=== PATIENT | male | born 1980 | race Caucasian/White ===

== ENCOUNTER 2018-05-21 11:11 | Emergency (ER) | payer OTHER ==
[~2018-05-21] VITALS: Ht 177.8 cm; Wt 72.6 kg
[2018-05-21] MEDS ORDERED: LIDOCAINE HCL/PF 1% 30 ML VIAL TP ONE (11:30)
[2018-05-21] MEDS ORDERED: HYDROCODONE/APAP 10/325MG 1 EA TABLET PO ONE (11:30)
[2018-05-21] MEDS ORDERED: TDAP [DIPH/PERTUSSIS/TET] 0.5 ML VIAL IM ONE ×2 (11:30→11:47)
[2018-05-21] MEDS ORDERED: LIDOCAINE 1% INJ 50 ML MDV IJ ONE (11:46)
[2018-05-21] MEDS ORDERED: HYDROCODONE/APAP 10/325MG 1 EA TABLET ONE (11:47)
[2018-05-21] MEDS ORDERED: IBUPROFEN 600 MG TABLET PO ONE ×2 (11:54→12:00)
[2018-05-21 12:27] VITALS: BP 125/71
== END 2018-05-21 12:27 | disposition home or self-care (01) ==
LOC: ER 11:14
DX: S61.411A Laceration without foreign body of right hand, initial encounter (principal); F10.10 Alcohol abuse, uncomplicated; Y90.9 Presence of alcohol in blood, level not specified; W01.0XXA Fall on same level from slipping, tripping and stumbling without subsequent striking against object, initial encounter; Y93.89 Activity, other specified; Y92.89 Other specified places as the place of occurrence of the external cause; Y99.8 Other external cause status
CPT/HCPCS: 73130-TC; 90715; A6402; J3490